=== PATIENT | male | born 1975 | race Caucasian/White ===

== ENCOUNTER 2018-07-11 14:44 | Emergency (ER) | payer MEDICAID ==
[~2018-07-11] VITALS: Ht 167.6 cm; Wt 142.9 kg
[~2018-07-11 14:44] MED LIST: AMOX500 PO; Augmentin 875-1 EACH PO; Bactrim Ds Tab1 EACH PO; DIAZ5 PO; FLUO10 PO; FURO20 PO; HYDACE5 PO; IBUP800 PO; Keflex500 MG PO; LACTOBACILLUS ACIDOP PO; NAPR500 PO; OXYACE5T PO; PENVK500 PO; PROACE100 PO; Percocet 5-3251 EACH PO; RXHYDACE PO; RXIBUP800 PO; RXPROACE PO; TRAM50 PO; TRAZ50 PO
[2018-07-11] MEDS ORDERED: Norco 5-325 Ta1 EACH PO (17:02)
== END 2018-07-11 17:05 | disposition home or self-care (01) ==
LOC: ER 14:44
DX: R07.81 Pleurodynia (principal); Z88.5 Allergy status to narcotic agent; Z88.8 Allergy status to other drugs, medicaments and biological substances; F17.210 Nicotine dependence, cigarettes, uncomplicated
CPT/HCPCS: 71101; J1885

== ENCOUNTER 2021-09-26 14:40 | Emergency (ER) | payer OTHER ==
[~2021-09-26] VITALS: Ht 167.6 cm; Wt 117.9 kg
[~2021-09-26 14:40] MED LIST changes: +Norco 5-325 Ta1 EACH PO
[2021-09-26] MEDS ORDERED: AMOCLA875 PO (14:50)
== END 2021-09-26 14:51 | disposition home or self-care (01) ==
LOC: ER 14:40
DX: S81.851A Open bite, right lower leg, initial encounter (principal); L08.9 Local infection of the skin and subcutaneous tissue, unspecified; W54.0XXA Bitten by dog, initial encounter; F17.210 Nicotine dependence, cigarettes, uncomplicated; Z88.5 Allergy status to narcotic agent
CPT/HCPCS: 99282

== ENCOUNTER 2022-10-24 00:50 | Emergency (ER) | payer OTHER ==
[~2022-10-24] VITALS: Ht 175.3 cm; Wt 127.0 kg
[~2022-10-24 00:50] MED LIST changes: +AMOCLA875 PO
[2022-10-24 03:08] LABS: BASOPHILS ABSOLUTE AUTO 0.02 K/mm3 (0.00-0.23); BASOPHILS PERCENT AUTO 0 % (0-2); EOSINOPHILS ABSOLUTE AUTO 0.06 K/mm3 (0.00-0.68); EOSINOPHILS PERCENT AUTO 1 % (0-6); Hematocrit 43.6 % (37.0-53.0); Hemoglobin 14.9 g/dL (13.5-17.5); IMMATURE GRAN ABSOLUTE AUTO 0.04 K/mm3 (0.00-0.10); IMMATURE GRAN PERCENT AUTO 0 % (0-1); LYMPHOCYTES ABSOLUTE AUTO 1.57 K/mm3 (0.84-5.20); LYMPHOCYTES PERCENT AUTO 14 % (21-46); MONOCYTES ABSOLUTE AUTO 0.58 K/mm3 (0.16-1.47); MONOCYTES PERCENT AUTO 5 % (4-13); Mean Corpuscular HGB 31.4 pg (26.0-34.0); Mean Corpuscular HGB Conc 34.2 g/dL (31.5-36.5); Mean Corpuscular Volume 92 fL (80-100); Mean Platelet Volume 9.1 fL (9.1-12.4); NEUTROPHILS ABSOLUTE AUTO 8.95 K/mm3 (1.96-9.15); NEUTROPHILS PERCENT AUTO 80 % (41-73); Platelet Count 295 K/mm3 (150-400); RDW Coefficient Variation 13.4 % (11.7-14.2); RDW Standard Deviation 45.9 fL (35.1-46.3); Red Blood Cell Count 4.75 M/mm3 (4.30-5.90); White Blood Cell Count 11.22 K/mm3 (4.00-11.30)
[2022-10-24 03:26] LABS: Albumin, Blood 3.3 g/dL (3.4-5.0); Albumin/Globulin Ratio 0.9 (0.8-1.8); Bilirubin, Total 0.3 mg/dL (0.1-1.0); Calcium, Blood 8.4 mg/dL (8.5-10.1); Creatinine, Blood 0.94 mg/dL (0.60-1.20); Globulin, Blood 3.7 g/dL (2.2-4.0); Potassium, Blood 4.1 mmol/L (3.5-5.5)
[2022-10-24 03:55] VITALS: BP 130/78
== END 2022-10-24 03:58 | disposition home or self-care (01) ==
LOC: ER 00:50
PROVIDERS: Emergency Medicine
DX: R55 Syncope and collapse (principal); R11.0 Nausea; R42 Dizziness and giddiness; E11.9 Type 2 diabetes mellitus without complications; F17.210 Nicotine dependence, cigarettes, uncomplicated; Z88.5 Allergy status to narcotic agent
CPT/HCPCS: 80053; 83880; 85025; 93005; 93010; 99284-25

== ENCOUNTER 2023-12-16 03:55 | Emergency (ER) | payer OTHER, BC ==
[~2023-12-16] VITALS: Ht 167.6 cm; Wt 106.6 kg
[2023-12-16 04:10] VITALS: BP 136/108
[2023-12-16] MEDS ORDERED: OxyCODONE 5 mg/Acetamin 325 mg TABLET PO ONE (06:35)
[2023-12-16] MEDS ORDERED: Percocet 5-3251 EACH PO (06:46)
== END 2023-12-16 07:46 | disposition home or self-care (01) ==
LOC: ER 03:55
DX: S62.525A Nondisplaced fracture of distal phalanx of left thumb, initial encounter for closed fracture (principal); W22.8XXA Striking against or struck by other objects, initial encounter; Y99.0 Civilian activity done for income or pay; Z88.5 Allergy status to narcotic agent; E11.9 Type 2 diabetes mellitus without complications; F17.210 Nicotine dependence, cigarettes, uncomplicated
CPT/HCPCS: 29125; 73130; 99283-25; A9270

== ENCOUNTER 2024-05-10 06:52 | Emergency (ER) | payer OTHER, BC ==
[~2024-05-10] VITALS: Ht 167.6 cm; Wt 117.9 kg
[2024-05-10 07:50] VITALS: BP 132/91
== END 2024-05-10 08:50 | disposition home or self-care (01) ==
LOC: ER 06:52
DX: S80.02XA Contusion of left knee, initial encounter (principal); E11.9 Type 2 diabetes mellitus without complications; F17.210 Nicotine dependence, cigarettes, uncomplicated; Z88.5 Allergy status to narcotic agent; W01.0XXA Fall on same level from slipping, tripping and stumbling without subsequent striking against object, initial encounter
CPT/HCPCS: 73562-LT; 99283-25